=== PATIENT | male | born 1935 | race Caucasian/White ===

== ENCOUNTER 2020-02-06 03:26 | Inpatient (IN) | payer OTHER ==
[2020-02-06] MEDS ORDERED: fentaNYL Citrate/PF 2,000 MCG in Sodium Chloride 0.9% 60 ML IV SCH (03:49)
[2020-02-06 04:04] LABS: #Basophils 0.1 thou/uL (0.0-0.2); #Lymphocytes 0.4 thou/uL (1.20-3.40); #Monocytes 0.7 thou/uL (0.11-0.59); #Neutrophils 12.2 thou/uL (1.40-6.50); %Basophils 0.4 % (0.0-1.0); %Eosinophils 0.2 % (0.0-10.0); %Lymphocytes 3.1 % (21.0-51.0); %Neutrophils 91.3 % (42.0-75.0); Hemoglobin 13.2 g/dL (14.0-18.0); Mean Corpuscular Hemoglobin 28.8 pg (27.0-31.0); Mean Corpuscular Volume 92.8 fL (78.0-98.0); Mean Platelet Volume 7.8 fL (7.4-10.4); Platelet Count 303 thou/uL (130-400); RBC Distribution Width 13.7 % (11.5-14.5); Red Blood Cell (RBC) Count 4.58 mill/uL (4.70-6.10); White Blood Cell (WBC) Count 13.3 thou/uL (4.8-10.8)
[2020-02-06 04:09] LABS: INR-International Normal Ratio 1.6; Prothrombin Time 18.7 SEC (12.0-14.7)
[2020-02-06] MEDS ORDERED: manNITOL 20% 500 ML ONE (04:09)
[2020-02-06 04:10] LABS: PTT 35.2 SEC (22.9-36.1)
[2020-02-06] MEDS ORDERED: CCU Electrolyte Replacement 1 EACH IVPB ONE (04:16)
[2020-02-06] MEDS ORDERED: Labetalol HCl 100 MG/20 ML VIAL SLOW IVP PRN (04:16)
[2020-02-06] MEDS ORDERED: Ventilator Sedation Protocol 1 EACH FS ONE (04:16)
[2020-02-06 04:21] LABS: ALT (SGPT) 21 U/L (8-55); AST (SGOT) 21 U/L (5-34); Albumin 3.5 g/dL (3.4-4.8); Alkaline Phosphatase 68 U/L (40-110); Anion Gap 13 mmol/L (10-20); BUN (Urea Nitrogen) 27 mg/dL (8.4-25.7); Bilirubin, Total 1.4 mg/dL (0.2-1.2); Calc. Creatinine Clearance 0 mL/min (70-130); Calcium 8.7 mg/dL (7.8-10.44); Carbon Dioxide 29 mmol/L (23-31); Chloride 99 mmol/L (98-107); Estimated GFR-MDRD Greater than 90; Globulin 3.3 g/dL (2.4-3.5); Glucose 205 mg/dL (83-110); Magnesium 1.8 mg/dL (1.6-2.6); Potassium 3.7 mmol/L (3.5-5.1); Protein, Total 6.8 g/dL (5.8-8.1); Sodium 137 mmol/L (136-145)
[2020-02-06] MEDS ORDERED: Propofol 1,000 MG/100 ML VIAL IV PRN (04:21)
[2020-02-06] MEDS ORDERED: Fentanyl BOLUS 250 ML IVPB PRN (04:21)
[2020-02-06] MEDS ORDERED: DISCONTINUE PREVIOUS NARCOTIC PAIN MEDICATIONS AND BENZODIAZEPINES FS SCH (04:21)
[2020-02-06] MEDS ORDERED: Propofol BOLUS 1,000 MG/100 ML VIAL IV PRN (04:21)
[2020-02-06] MEDS ORDERED: Morphine 2 MG/ML SYRINGE SLOW IVP PRN (04:21)
[2020-02-06] MEDS ORDERED: Lorazepam 2 MG/ML VIAL SLOW IVP PRN (04:21)
[2020-02-06] MEDS ORDERED: Potassium Chloride 40 MEQ in Sodium Chloride 0.9% 250 ML 250 ML IVPB PRN (04:22)
[2020-02-06] MEDS ORDERED: PHOS-NAK 1 PKT PACK PO PRN ×2 (04:22)
[2020-02-06] MEDS ORDERED: Magnesium 2 GM/50 ML 2 GM in Premix Bag 1 BAG IVPB PRN (04:22)
[2020-02-06] MEDS ORDERED: Potassium Chloride 20 MEQ TAB PO PRN (04:22)
[2020-02-06] MEDS ORDERED: Potassium Phosphate 9 MMOL in Sodium Chloride 0.9% 100 ML IVPB PRN (04:22)
[2020-02-06] MEDS ORDERED: CCU ELECTROLYTE REPLACEMENT PROTOCOL FS PRN (04:22)
[2020-02-06] MEDS ORDERED: Potassium Phosphate 15 MMOL in Sodium Chloride 0.9% 250 ML 250 ML IV PRN (04:22)
[2020-02-06] MEDS ORDERED: Potassium Chloride 40 MEQ in Premix Bag 1 BAG IVPB PRN (04:22)
[2020-02-06] MEDS ORDERED: Potassium Phosphate 12 MMOL in Sodium Chloride 0.9% 250 ML 250 ML IV PRN (04:22)
[2020-02-06] MEDS ORDERED: Magnesium Oxide 400 MG TAB PO PRN ×2 (04:22)
[2020-02-06 04:26] LABS: Actual Bicarbonate (HCO3a) 25.2 mEq/L (22-28); Analyzer IN Cardio ER; Base Excess (BEa) 0.2 mEq/L (-2.0 to +3.0); CO2 Tension 42.4 mmHg (35.0-45.0); Calcium, Ionized 1.09 mmol/L (1.12-1.30); Carboxyhemoglobin (COHb) 0.5 gm% (0.0-3.0); Hemoglobin (Hb) 12.2 g/dL (14.0-18.0); O2 Tension (PaO2) 90.9 mmHg (> 60.0); Potassium - ABG Lab 3.47 mmol/L (3.70-5.30); pH, Arterial 7.39 (7.35-7.45)
[2020-02-06 04:27] LABS: Bilirubin Negative (Negative); Blood, Urine Negative (Negative); Clarity Clear (Clear); Glucose, Urine (Dipstick) Normal (Negative); Leukocyte Negative Leu/uL (Negative); Nitrite Negative (Negative); Protein, Urine (Dipstick) Negative (Neg-Trace); Urobilinogen Normal mg/dL (Less than 2)
[2020-02-06 04:35] LABS: Puncture Site LBA
[2020-02-06] MEDS ORDERED: Norepinephrine 8 MG in Dextrose 5% in Water 242 ML IVPB PRN (04:38)
[2020-02-06] MEDS ORDERED: Protamine Sulfate 50 MG/5 ML VIAL ONE (05:14)
--- NOTE | 2020-02-06 05:58 | PDOC.FPRHP ---
- History of Present Illness Chief Complaint: Unresponsive History of Present Illness: Pt is an 84 yo male with PMH significant for pulmonary embolism on Lovenox, HTN , HLD, CAD, COPD on 2 L baseline who presents unresponsive from shelter. Late night 02/03 pt went to [facility] for a headache and given tylenol. Pt continued with headache but mentation was normal. At 0100 on 02/05 he woke to use the urinal and had no deficits. Guards left and came back in with pt altered. He then became unresponsive. The Life [facility] team picked him up around an hour later and flighted to the emergency department. He was intubated on scene and hypertensive. He was given labetolol. In the emergency department his pressures dropped and started on pressors, central line placed in R femoral. He was given fentanyl to decrease overbreathing the vent. Mannitol and portamine sulfate were administered. [facility] gave medical hx to ED nurses. His product safety associate will call with family contacts. - Allergies/Adverse Reactions Allergies Allergy/AdvReac Type Severity Reaction Status Date / Time No Allergy Information Allergy Unverified 02/06/20 03:49 Available - History PMHx: PE on lovenox, HTN, HLD, CAD, EF 50-55%, COPD on 2 L PSHx: unknown FHx: unknown Social: Good relation with his product safety associate who will provide family contacts - Review of Systems ROS unobtainable: due to mental status - Vital signs BP: 87/49 HR: 72 RR: 14 Tmax: 96 Pox: 97 % on Vent Wt: Not recorded - Physical Exam -Constitutional: intubated -HEENT: pinpoint R pupil, non-reactive to light, head atraumatic Neck: trachea midline, no JVD -Chest: no response to sternal rub Heart: RRR, normal S1/S2, no edema Lungs: CTAB, good air movement -Lungs: on vent Abdomen: bowel sounds present, no masses/distention Musculoskeletal: normal structure -Neurological: no sensation, no movement, Dilated R pupil non-reactive to light, no reaction with babinski sign Skin: no rash/lesions, no jaundice Heme/Lymphatic: no purpura, no petechia -Psychiatric: unable to assess FMR H&P: Results - Labs Result Diagrams: 02/06/20 03:41 02/06/20 03:41 Lab results: WBC 13.3 thou/uL (4.8-10.8) H 02/06/20 03:41 Hgb 13.2 g/dL (14.0-18.0) L 02/06/20 03:41 Hct 42.5 % (42.0-52.0) 02/06/20 03:41 MCV 92.8 fL (78.0-98.0) 02/06/20 03:41 Plt Count 303 thou/uL (130-400) 02/06/20 03:41 Neutrophils % 91.3 % (42.0-75.0) H 02/06/20 03:41 ABG pH 7.39 (7.35-7.45) 02/06/20 04:11 ABG pCO2 42.4 mmHg (35.0-45.0) 02/06/20 04:11 ABG pO2 90.9 mmHg (> 60.0) H 02/06/20 04:11 Sodium 137 mmol/L (136-145) 02/06/20 03:41 Potassium 3.7 mmol/L (3.5-5.1) 02/06/20 03:41 Chloride 99 mmol/L (98-107) 02/06/20 03:41 Carbon Dioxide 29 mmol/L (23-31) 02/06/20 03:41 BUN 27 mg/dL (8.4-25.7) H 02/06/20 03:41 Creatinine 0.76 mg/dL (0.7-1.3) 02/06/20 03:41 Glucose 205 mg/dL (83-110) H 02/06/20 03:41 Lactic Acid 1.1 mmol/L (0.5-2.2) 02/06/20 04:07 Calcium 8.7 mg/dL (7.8-10.44) 02/06/20 03:41 Total Bilirubin 1.4 mg/dL (0.2-1.2) H 02/06/20 03:41 AST 21 U/L (5-34) 02/06/20 03:41 ALT 21 U/L (8-55) 02/06/20 03:41 Alkaline Phosphatase 68 U/L (40-110) 02/06/20 03:41 Serum Total Protein 6.8 g/dL (5.8-8.1) 02/06/20 03:41 Albumin 3.5 g/dL (3.4-4.8) 02/06/20 03:41 Urine Ketones 10 mg/dL (Negative) A 02/06/20 03:52 Urine Blood Negative (Negative) 02/06/20 03:52 Urine Nitrite Negative (Negative) 02/06/20 03:52 Ur Leukocyte Esterase Negative Etta/uL (Negative) 02/06/20 03:52 - Radiology Interpretation CT scan - head Status: image reviewed by me Additional comment: R subdural hemorrhage with a significant midline shift, R ventricle not visualized Chest x-ray Status: image reviewed by me Additional comment: Read not back, appears to have chronic lung changes, flattening of the diaphragm , mild cardiomegaly, no pulmonary edema FMR H&P: A/P - Problem List (1) Subdural hemorrhage Current Visit: Yes Status: Acute Code(s): I62.00 - NONTRAUMATIC SUBDURAL HEMORRHAGE, UNSPECIFIED (2) HTN (hypertension) Current Visit: Yes Status: Acute Code(s): I10 - ESSENTIAL (PRIMARY) HYPERTENSION (3) HLD (hyperlipidemia) Current Visit: Yes Status: Acute Code(s): E78.5 - HYPERLIPIDEMIA, UNSPECIFIED (4) Pulmonary emboli Current Visit: Yes Status: Acute Code(s): I26.99 - OTHER PULMONARY EMBOLISM WITHOUT ACUTE COR PULMONALE (5) CAD (coronary artery disease) Current Visit: Yes Status: Acute Code(s): I25.10 - ATHSCL HEART DISEASE OF [place] CORONARY ARTERY W/O ANG PCTRS - Plan Pt is an 84 yo male here for a significant R subdural hemorrhage with midline shift: # R Subdural Hemorrhage - poor prognosis - Neurosurgery consulted in ED and will pursue medical management; appreciate orders and recs - continue levophed for hypotension - Intubation protocol - Given protamine sulfate, mannitol in the ED - Need follow up with product safety associate who will give family contacts. He will contact the hospital when is at his office with information. Please page the day resident team if he calls. # PE w/ Lovenox Anticoag - d/c lovenox # COPD - hold meds # HLD - hold meds # HTN - hold meds # CAD - hold meds VTE: none Diet: NPO Fluids: NaCl 100 mls/hr Code: Full - need to discuss with family Dispo: admit to CCU inpatient FMR H&P: Upper Level - Plan Date/Time: 02/06/20 1136 PCP: Autumn HPI: This is a patient sent over from alf who was found to have a large subdural hematoma. At time of exam in the ED he was intubated, history gathered from ED team. Patient was reported to have had a headache for one day and was given Tylenol at the [facility] in [place]. He then became unconscious for 1 hour prior to [facility] arrival, on [facility] arrival he was found to have R blown pupil and GCS of 3. He was known to have history including HLD, HTN,CAD, COPD, and PE for which he was on Lovenox. The alf is sending the rest of his records. He was well known to the alf product safety associate who has information on his next of kin at his office and will call hospital with this information. PHYSICAL EXAMINATION: General: intubated, non-responsive HEENT: R pupil blown and non-responsive, L pupil constricted Heart/Cardiovascular System: bradycardic prior to atropine , no murmur Lungs/Respiratory System: clear to auscultation bilaterally. On ventilator Abdomen/Gastro-Intestinal System: no abdominal tenderness, normal bowel sounds Extremities: Warm extremities. Neuro: unresponsive, upgoing babinskis, no posturing Skin: No lesions, rashes, or ulcers Musculoskeletal: Full ROM A/P: # Subdural Hematoma - was on lovenox 2/2 history of PE - 2cm midline shift - s/p protamine for lovenox reversal, mannitol - Neurosurgery consulted, currently not planning surgical intervention, recs appreciated - keep BPs <160 systolic # Shock likely neurogenic source - supportive care, levophed # HTN, HLD, CAD, COPD - Await records from alf for other chronic conditions Fluids: NS Code status: full PPx: Famotidine, SCD Dispo: Dismal prognosis, awaiting next of kin info from DOC product safety associate Addendum - Attending - Attending Attestation Date/Time: 02/06/20 5719 I personally evaluated the patient and discussed the management with Dr. Lemus /Bekah I agree with the History, Examination, Assessment and Plan documented above with any addition or exceptions noted below. See my dictated H&P for details. Doc#[id number]
--- NOTE | 2020-02-06 06:34 | HP ---
HISTORY OF PRESENT ILLNESS: Mr. Putnam is an 84-year-old gentleman who has been referred to [facility] via helicopter for level 1 stroke call. The patient reportedly developed a severe headache. No history of trauma. He is a prisoner and upon arrival, apparently had massive neurologic deterioration. GCS was 3 and developed a right fixed dilated pupil. For this, he was rapid sequence intubated. Emergent CT scan of brain was performed reveals a profound right-sided subdural hematoma with severe tyjyz-bf-fzti midline shift. The subdural expands the entire right cerebral convexity and both the anterior-posterior in a rostral caudal direction. There is near full face minutes of the right lateral ventricle. This entire structure is pushed all the way into the right cerebral hemisphere. The patient is on Lovenox for history of thromboembolic event. The rest of his medical history is unobtainable at this time. No family members are present or able to be reached. I do not have any other contact information as of yet; this is still on its way from the [facility]. Upon my arrival at bedside, the patient is intubated. He has again right fixed dilated pupil. The left is minimally reactive to light. He has no corneal reflex. No gag reflex. No cough reflex. No oculocephalic reflex. He has no motor response whatsoever. Reported the patient is somewhat overbreathing the vent from ijxa-wy-zrcw. Mannitol is being delivered 0.5 mg/kg to IV. A Todd catheter is in place. His pressures upon arrival were in the 60s systolic. Upon my presentation, they systolic. During the course of my examination, this further dropped to the 80s systolic and pressors were started by the ER physician. This is likely representing early herniation. ASSESSMENT: Jzhxw-zk-llkwleqgut right subdural hematoma with altered mental status and severe midline shift. PLAN: This hemorrhage likely represents a terminal hemorrhage. Given the size and current neurologic status and the patient's advanced age, I would not think this to be imminently surgical intervention. I discussed this with Dr. Otero who is in agreement. Plan will be to admit to the ICU with [facility]. We will look for contacting family members or point of contact for medical decision making when this information becomes available in the morning. For now, we will place him in the ICU with pressor support. Job ID: [id number]
--- NOTE | 2020-02-06 06:35 | HP ---
CHIEF COMPLAINT: Nonresponsiveness. HISTORY OF PRESENT ILLNESS: I reviewed all documentation and discussed care of this patient with Dr. Lemus and Dr. Godfrey. I agree with all their documentation, unless otherwise stated in the following attestation. In summary, Mr. Putnam is an unfortunate 84-year-old gentleman, currently resides within the [place] [facility] [place]. He presented from the [facility] after being found nonresponsive. History is limited due to the patient's nonresponsive state at this time. According to the ER records, the patient had been complaining of a headache throughout the day. While in [facility], he was found to have decreasing level of consciousness, which prompted the EMS to be called. He was life flighted from the [facility] to [facility] and was intubated en route due to GCS of less than 8. Records are currently unavailable from the [facility], but according to the ER report, the patient is currently receiving therapeutic Lovenox for recent pulmonary embolus. Please see senior internet sales consultant note for past medical, surgical, social, and family history. PERTINENT PHYSICAL EXAMINATION: VITAL SIGNS: Blood pressure 87/49, pulse 72, respiratory rate 14, temperature 96, and pulse ox 97% with mechanical ventilation. GENERAL: The patient is nonresponsive. He does not respond to verbal or noxious stimuli. HEENT: Normocephalic and atraumatic. Right pupil is blown and dilated. Left pupil is minimally responsive to light. Endotracheal tube is noted. CARDIOVASCULAR: Normal rate. Regular rhythm. No murmurs, rubs, or gallops appreciated. PULMONARY: Clear to auscultation bilaterally. Normal effort. ABDOMEN: Soft and nontender to palpation. There is an old scar noted over his right lower quadrant. NEUROLOGIC: GCS of E1 V1t M1. The patient does respond to noxious stimuli. The patient does not withdraw or posture to noxious stimuli. Again, the right pupil is dilated and fixed. Left pupil is minimally responsive to light. Rest of neurologic exam is limited due to the patient's nonresponsive state. PERTINENT LABORATORY FINDINGS: Blood gas; pH of 7.39, pCO2 of 42.4, pO2 of 90.9 , and bicarb of 25.2. UA is negative. Troponin negative. Metabolic panel is unremarkable. Coagulation studies show prothrombin time of 18.1 with an INR of 1.6. PTT is within the upper limits of normal at 35.2. White blood cell count 13.3, hemoglobin 13.2, and neutrophils 91.3%. EKG reviewed by me shows normal sinus rhythm with occasional premature ventricular contractions at a rate of 67 with a prolonged QTc interval of 532, MI interval is borderline prolonged at 204 milliseconds. Chest x-ray is reviewed by me. No acute processes. Endotracheal tube and an orogastric tube in appropriate location. Brain CT reviewed by me shows a large right subdural hematoma with midline shift present. CAT scan read as large right subdural hematoma with mass effect including subfalcine and uncal herniation. ASSESSMENT: Mr. Putnam is an unfortunate 84-year-old gentleman, who presented with a 1-day history of headache and had progressively worsening mentation. He has been on anticoagulation with Lovenox for reported pulmonary embolus. PLAN: 1. Spontaneous right subdural hematoma with mass effect and uncal herniation. The patient has received protamine and manitol in the ER. Neurosurgery has been consulted by the ER. According to the ER report, Neurosurgery states that due to the extensive midline shift, the patient is not a surgical candidate at this time. We will continue supportive measures. CVC has been placed in the ER and the patient was started on Levophed due to decrease in his blood pressure. We will hold off all anticoagulants at this time. We are awaiting information regarding the patient' s next of kin and we will reach out discussing code status at that time. We will continue mannitol and hyperventilation to reduce brain swelling. However, his overall prognosis is guarded at this time. 2. See senior internet sales consultant note for chronic medical problem management. 3. Disposition, inpatient ICU. Approximately 45 minutes of critical care time were spent on this patient. Job ID: [id number] MTDD
[2020-02-06 06:51] VITALS: BMI 25.2
[2020-02-06] MEDS: Sodium Chloride 0.9% 1,000 ML IV SCH ×2 (07:07→16:15)
[2020-02-06 07:35] LABS: Troponin I 0.042 ng/mL (< 0.028)
--- NOTE | 2020-02-06 07:49 | CT ---
PRELIMINARY REPORT/[facility]/AFTER HOURS PROCEDURE CT HEAD WITHOUT INTRAVENOUS CONTRAST: CLINICAL HISTORY: Level I stroke. TECHNIQUE: Axial computed tomography images of the head/brain without intravenous contrast. COMPARISON: None provided. FINDINGS: BRAIN: Large acute right subdural hematoma is present. It measures upwards of 2.2 cm right frontal re gion. There is marked midline shift from right to left measuring 2 cm. Parafalcine subdural hematoma is present. There is subfalcine and uncal herniation . Patient demonstrates Baseline of cerebral a trophy and small vessel ischemic disease. VENTRICLES: No hydrocephalus. ORBITS: The orbits are unremarkable. SINUSES AND MASTOIDS: The paranasal sinuses and mastoid air cells are clear. SOFT TISSUES: No significant facial or scalp soft tissue swelling evident. No radiopaque foreign body is seen. BONES: No acute skull fracture. MISCELLANEOUS: NG tube is present. It is coiled within the oropharynx. Endotracheal tube is present. IMPRESSION: Large right-sided subdural hematoma with marked mass effect. NG tube loops within the oropharynx. ELECTRONICALLY SIGNED BY: Angy Cleary MD Feb 06, 2020 3:47:43 AM CDT This report is intended for review by the ordering physician only, in accordance of law. If you recei ve this report in error, please call [facility] at [phone]. FINAL REPORT EMERGENT AFTER-HOURS CT BRAIN WITHOUT CONTRAST: FINDINGS/IMPRESSION: I agree with the findings and impression given in the preliminary report per the [facility] phy sician. There is a very large right-sided subdural hemorrhage with both acute and chronic components. There i s significant midline shift and severe crowding of the basilar cisterns. CODE QA
--- NOTE | 2020-02-06 08:13 | RAD ---
SINGLE VIEW CHEST: HISTORY: Intracranial hemorrhage. FINDINGS: A single view of the chest shows a normal sized cardiomediastinal silhouette. There is an endotrachea l tube with its tip positioned above the esther. A second catheter projects over the midline, which c ould represent an NG tube, which would be in the distal esophagus. There is no evidence of consolidat ion, mass or pleural effusion. IMPRESSION: Possible nasogastric tube located in the distal esophagus. POS: C
--- NOTE | 2020-02-06 08:14 | RAD ---
SINGLE VIEW CHEST: HISTORY: Intracranial hemorrhage. Endotracheal tube adjustment. COMPARISON: 02/06/20 FINDINGS: A single view of the chest shows a normal sized cardiomediastinal silhouette. There is an endotrachea l tube with its tip in good position at the lower border of the clavicles. An NG tube courses off the inferior aspect of the film. There is no evidence of consolidation, mass or pleural effusion. IMPRESSION: Appropriate position of endotracheal tube and nasogastric tube. POS: [facility]
[2020-02-06] MEDS ORDERED: Famotidine/PF 20 mg/2ml Vial SLOW IVP SCH (09:00)
[2020-02-06 10:19] LABS: Troponin I 0.027 ng/mL (< 0.028)
[2020-02-06 11:21] VITALS: BP 135/53
[2020-02-06] MEDS ORDERED: Atropine Sulfate 1 mg/10 ml Syringe ONE (13:18)
--- NOTE | 2020-02-06 13:40 | PRG ---
DATE OF SERVICE: 02/06/2020 SUBJECTIVE: Mr. Putnam is an 84-year-old gentleman, who presented early this morning with abrupt altered level of consciousness. He had a CT scan performed, which showed a very large mixed density right-sided subdural hematoma that consisted predominantly of acute blood, but also hyperacute bleeding. This is in the setting of a blood thinner. The CT scan also showed profound degree of midline shift without evidence of herniation. The patient had a dismal exam upon presentation and in my view, a very poor prognosis for recovery. I do not believe surgery had any benefit to his overall chance of recovery. Our plan is ongoing medical management without neurosurgical intervention. Job ID: [id number]
--- NOTE | 2020-02-06 14:34 | CON ---
DATE OF CONSULTATION: 02/06/2020 HISTORY OF PRESENT ILLNESS: Mr. Putnam is an 84-year-old [facility] inmate. He was found down with a subdural. Neurosurgery feels there are no therapeutic options for him. The hospital team is trying to get a hold of family to get code decisions made. PAST MEDICAL HISTORY: Remarkable for: 1. 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 2. Hypertension. 3. Coronary artery disease. 4. History of COPD. It unknown if he is currently smoking. He is not drinking as he is an inmate. FAMILY HISTORY: Noncontributory. REVIEW OF SYSTEMS: Not obtainable. PHYSICAL EXAMINATION: GENERAL: He is flaccid. He appears his age. VITAL SIGNS: Heart rate in the 50s, blood pressure 135/53, respiratory rate per mechanical ventilation. NECK: Supple without lymphadenopathy. LUNGS: Clear. HEART: Regular rhythm. ABDOMEN: Soft. EXTREMITIES: Without edema. NEUROLOGIC: Remarkable for being flaccid. IMAGING STUDIES: Chest x-ray shows no alveolar infiltrates. Brain CT shows significant sjkmw-bi-poof shift with a very large subdural. This appears to be subacute based on the imaging appearance. ASSESSMENT AND PLAN: It is unlikely he can survive this. Terminal disposition needs to be made. CRITICAL CARE TIME: 30 minutes. Job ID: [id number] MTDD
[2020-02-06 20:18] VITALS: TEMP 97.5
[2020-02-06] MEDS ORDERED: Scopolamine 1.5 mg/72 hour Patch TD PRN (21:00)
[2020-02-07] MEDS: Sodium Chloride 0.9% 1,000 ML IV SCH (00:27)
--- NOTE | 2020-02-08 10:20 | DIS ---
DATE OF ADMISSION: 02/06/2020 DATE OF : 02/07/2020 Time of called by Dr. Lauro Godfrey. Family notified at 0242, left message with son, DARLINE; Iliana Putnam, . ATTENDING: Mike Mac MD. RESIDENT: Sriram Lemus DO. DATE OF : 02/07/2020. TIME OF : 023. CAUSE OF : Massive subdural hematoma with mass effect and uncal herniation. SECONDARY DIAGNOSES: 1. Hypertension. 2. Hyperlipidemia. 3. Coronary artery disease. 4. Chronic obstructive pulmonary disease. 5. History of pulmonary embolism requiring therapeutic Lovenox. HOSPITAL COURSE: Russell Putnam was an 84-year-old male, who presented to the emergency department from halfway with a subdural hemorrhage with midline shift. He was intubated on site with the [facility] crew and transported to [facility]. At the hospital, he was placed on a ventilator and Levophed initiated for bradycardia and hypotension. The patient was then transferred to the floor. He did not regain consciousness. DARLINE, son, was contacted and subsequently it was decided Mr. Putnam would be terminally extubated and was terminally extubated. Pressors were discontinued. On 02/07/2020 at 0233, the patient was pronounced . Message was left with DARLINE at 0242 and waiting for return of phone call. packet completed. Refer to documentation for details. Job ID: [id number] MTDD
== END 2020-02-07 02:33 | disposition expired | DRG 64 ==
LOC: ERS 03:26 → CCU 04:20
PROVIDERS: ADMIT Family Medicine; ATTEND Family Medicine
PROC: 5A1935Z Respiratory Ventilation, Less than 24 Consecutive Hours (ICD-10-PCS; principal; 2020-02-06)
PROC: 0T9B70Z Drainage of Bladder with Drainage Device, Via Natural or Artificial Opening (ICD-10-PCS; 2020-02-06)
PROC: 06HM33Z Insertion of Infusion Device into Right Femoral Vein, Percutaneous Approach (ICD-10-PCS; 2020-02-06)
PROC: 3E033XZ Introduction of Vasopressor into Peripheral Vein, Percutaneous Approach (ICD-10-PCS; 2020-02-06)
DX: I62.01 Nontraumatic acute subdural hemorrhage (principal); G93.5 Compression of brain; R40.2312 Coma scale, best motor response, none, at arrival to emergency department; R40.2112 Coma scale, eyes open, never, at arrival to emergency department; R40.2212 Coma scale, best verbal response, none, at arrival to emergency department; J44.9 Chronic obstructive pulmonary disease, unspecified; K21.9 Gastro-esophageal reflux disease without esophagitis; I25.10 Atherosclerotic heart disease of native coronary artery without angina pectoris; M19.90 Unspecified osteoarthritis, unspecified site; I10 Essential (primary) hypertension; E78.5 Hyperlipidemia, unspecified; R57.8 Other shock; Z86.711 Personal history of pulmonary embolism; Z79.01 Long term (current) use of anticoagulants
CPT/HCPCS: 36415; 36416; 36556; 51702; 70450; 71045; 80053; 81003; 82805; 83605; 83735; 83930; 84484; 85025; 85610; 85730; 86850; 86870; 86900; 86901; 86922; 93005; 94002; 96365; 96366; 96375; 99292; C1769; J0461; J2720; J3010; J3490; J7070; J7799; S0028